=== PATIENT | female | born 1965 | race Caucasian/White ===

== ENCOUNTER 2021-02-26 23:11 | Inpatient (IN) | payer OTHER, SELFPAY ==
--- NOTE | ~2021-02-26 | XR_ITS ---
EXAMINATION: XR chest 2V 02/26/2021 23:43 INDICATION: Sternal chest pain PROCEDURE: 2 view chest COMPARISON: No prior studies for comparison. FINDINGS: The lungs are clear. The cardiomediastinal silhouette is within normal limits. There are no pleural effusions. There is no pneumothorax suspected. IMPRESSION: 1: NO ACUTE CARDIOPULMONARY DISEASE. Reviewed, dictated and finalized at location A.
--- NOTE | 2021-02-26 23:13 | ECG_ITS ---
Measurements Intervals [place] Rate: 74 P: 17 ND: 160 QRS: 27 QRSD: 96 T: 29 QT: 355 QTc: 396 Interpretive Statements SINUS RHYTHM SUBTLE ST ELEVATION IN LATERAL LEADS- CONSIDER ACUTE INJURY ST DEPRESSION IN SEPTAL LEADS- CONSIDER ACUTE POSTERIOR INFARCT BASELINE ARTIFACT- I, II, III, AVR, AVL, AVF, V1, V4, V6 ABNORMAL ECG Electronically Signed On 02-27-2021 7:25:32 CDT by Timmy White D.O.
[2021-02-26 23:16] VITALS: BP 113/90; PULSE 83; RESP 34; TEMP 36.4; O2SAT 98
[2021-02-26] MEDS: ASPIRIN 81 MG CHEWABLE TABLET 324 MG PO (23:27)
--- NOTE | 2021-02-26 23:32 | ED.CHESTPAIN ---
HPI - Chest Pain General Chief Complaint: Chest Pain Stated Complaint: chest pain Time Seen by Provider: 02/26/21 23:29 Source: patient Mode of arrival: ambulatory Limitations: no limitations History of Present Illness HPI narrative: Patient is a 55-year-old female complaining of chest pain, midsternal, 9 out of 10, tightness, nonradiating started approximately 15 to 20 minutes prior to arrival. Patient denies any shortness of breath, abdominal pain, nausea, vomiting, diaphoresis, fever or chills. Related Data Allergies Allergy/AdvReac Type Severity Reaction Status Date / Time No Known Allergies Allergy Verified 02/26/21 23:12 Review of Systems Review of Systems: All systems reviewed & are unremarkable except as noted in HPI and below Constitutional: Constitutional: Denies body ache(s), Denies chills, Denies excessive sweating, Denies fatigue, Denies fever(s), Denies headache(s), Denies lethargy, Denies malaise, Denies weakness and Denies weight loss Eyes: Eyes: Denies blurry vision, Denies change in vision and Denies loss of vision ENT: Denies dizziness, Denies ear discharge, Denies headache(s), Denies lip swelling, Denies epistaxis, Denies nasal congestion, Denies neck pain, Denies throat swelling and Denies tongue swelling Cardiovascular: Cardiovascular: Denies diaphoresis, Denies rapid heart rate, Denies edema, Denies irregular heart rhythm, Denies lightheadedness, Denies palpitations, Denies dyspnea and Denies dyspnea on exertion Respiratory: Respiratory: Denies chest congestion, Denies cough, Denies hemoptysis, Denies dyspnea and Denies dyspnea on exertion Gastrointestinal: Gastrointestinal: Denies abdominal pain, Denies melena, Denies hematochezia, Denies diarrhea, Denies nausea, Denies vomiting and Denies hematemesis Musculoskeletal: Musculoskeletal: Denies abnormal gait, Denies deformity, Denies joint swelling, Denies limited range of motion, Denies neck pain and Denies numbness Neurologic: Denies Abnormal speech present, Denies abnormal gait, Denies confusion, Denies dizziness, Denies headache(s), Denies focal weakness, Denies loss of vision, Denies numbness, Denies Other visual disturbances, Denies Sensory deficit (Neuro) and Denies weakness Psychiatric: Psychiatric: Denies confusion, Denies depression, Denies auditory hallucinations, Denies homicidal ideation and Denies suicidal ideation Endocrine: Endocrine: Denies cold intolerance, Denies excessive sweating, Denies fatigue, Denies heat intolerance and Denies palpitations Hematologic/Lymphatic: Hematologic/Lymphatic: Denies easy bleeding and Denies easy bruising Allergic/Immunologic: Allergic/Immunologic: Denies lip swelling, Denies throat swelling and Denies tongue swelling PMFSH Family History Family History Mother Cerebrovascular accident Family history of heart disease in male family member before age 55 Father Family history of heart disease in male family member before age 55 Other Hypertension Social History Social History Smoking status: Never smoker Alcohol intake: current Comments Past medical history: Coronary artery disease, hypertension, hyperlipidemia Family history: Coronary disease Social history: Non-smoker, occasional EtOH use, no drug use Exam Const: General: cooperative, healthy appearing, comfortable, no acute distress, well developed, alert and awake; No confusion Orientation/consciousness: oriented to person, oriented to place, oriented to time, patient oriented x3 and No confusion Limitations: no limitations HENMT: Head: normal to inspection, normocephalic and atraumatic Ears: hearing grossly normal bilaterally, TM normal on the right and TM normal on the left General nose exam: Normal external nose present, Normal nares present and No nasal discharge present Face and sinus: normal facial exam Mouth: Yes Normal oral and pal
[2021-02-26 23:34] LABS: Basophils Absolute Auto 0.1 K/mm3 (0.0-0.1); Basophils Percent Auto 0.6 % (0.2-1.2); Eosinophils Absolute Auto 0.2 K/mm3 (0-0.3); Eosinophils Percent Auto 2.2 % (0-4.4); Hematocrit 43.1 % (37.0-47.0); Hemoglobin 14.5 g/dL (12.0-15.0); Immature Granulocyte Absolute 0.02 K/mm3 (0.00-0.031); Immature Granulocyte Percent A 0.2 % (0-0.5); Lymphocytes Absolute Auto 3.33 K/mm3 (0.9-3.2); Lymphocytes Percent Auto 37.2 % (18.3-44.2); Mean Corpuscular HGB Conc 33.6 g/dl (32-36); Mean Corpuscular Hemoglobin 30.2 pg (26-34); Mean Corpuscular Volume 89.8 fl (80-100); Monocytes Absolute Auto 0.7 K/mm3 (0.1-0.6); Monocytes Percent Auto 7.9 % (2.6-8.5); Neutrophils Absolute Auto 4.6 K/mm3 (1.3-6.7); Neutrophils Percent Auto 51.9 % (45.5-73.1); Platelet Count Result 398 k/mm3 (150-375); Red Cell Distribution Width 12.1 % (11.5-14.5)
[2021-02-26 23:44] LABS: Anion Gap 11 mmol/L (8-16); Blood Urea Nitrogen 18 mg/dL (7-17); Calcium 10.1 mg/dL (8.4-10.2); Carbon Dioxide 31 mmol/L (22-30); Chloride 95 mmol/L (98-107); Estimated CRCL calculation 56 ml/min; Estimated Glomerular Filt Rate > 60; Glucose 139 mg/dL (65-105); Potassium 3.2 mmol/L (3.4-5.0); Sodium 137 mmol/L (137-145)
[2021-02-26 23:51] VITALS: BP 138/86; PULSE 69; RESP 26; O2SAT 100
[2021-02-26] MEDS: NITROGLYCERIN SL 0.4 MG TABLET SUBLINGUAL (23:53)
[2021-02-26 23:56] VITALS: O2SAT 100
[2021-02-26 23:58] VITALS: BP 84/60
[2021-02-27] VITALS (34 sets, daily range): BP systolic 100–134; BP diastolic 54–90; PULSE 64–86; RESP 16–27; TEMP 36.6–36.9; O2SAT 92–100; BMI 29.6
[2021-02-27] MEDS: SODIUM CHLORIDE 0.9% IV 1,000 ML 999 ML
--- NOTE | 2021-02-27 | PC.NURSE ---
One dose of 0.4mg SL nitroglycerin given. Pts pressure 84/60 after first dose. EDP made aware, fluid bolus initiated.
[2021-02-27 00:07] LABS: INR 0.9; Partial Thromboplastin Time 24.1 SECONDS (22.3-36.8); Prothrombin Time 12.5 Seconds (11.1-14.7)
[2021-02-27] MEDS: HEPARIN SODIUM 5,000 UNITS/ML VIAL 3000 UNITS IV PUSH (00:25)
[2021-02-27] MEDS: NITROGLYCERIN/D5W 200 MCG/ML 50 MG/250 ML BTL IV CONT ×2 (00:30→08:37)
[2021-02-27] MEDS: HEPARIN SOD/D5W 100 UNITS/ML 25,000 UNITS/250 ML BAG 6 UNITS IV CONT (00:51)
--- NOTE | 2021-02-27 00:57 | ECG_ITS ---
Measurements Intervals [place] Rate: 71 P: 25 IN: 178 QRS: 18 QRSD: 95 T: 200 QT: 439 QTc: 480 Interpretive Statements SINUS RHYTHM ST-T WAVE ABNORMALITY IN ANTEROLAT/HIGH LAT LEADS- CONSIDER ISCHEMIA ABNORMAL ECG Electronically Signed On 02-27-2021 7:22:58 CDT by Timmy White D.O.
[2021-02-27] MEDS: POTASSIUM CHLORIDE 20 MEQ PACKET (FOR LIQUID) 40 MEQ PO (01:22)
[2021-02-27 02:33] LABS: Magnesium 1.9 mg/dL (1.6-2.3)
--- NOTE | 2021-02-27 03:15 | PM.IMHP ---
H&P: HPI History of Present Illness Date/Time: 02/27/21 03:15 Chief Complaint: Chest pain Narrative: 55-year-old female with past medical history of hypertension and family history of premature coronary artery disease who presented to the ER with chest pain that started 30 minutes prior to arrival. 9 to 10/10 in intensity. Patient reports that she was lying in bed when she suddenly developed severe central chest pressure. After pressure had been ongoing for several minutes it then radiated to her left shoulder and upper neck. She did have a brief episode of cold chills with the pain. Her pain did also radiate through to her back. She reported her pain got minimally better when she sat up but seemed to get worse when she tried to get up and move around. She subsequently had her drive her to the ER. In the ER she received 324 mg of aspirin and sublingual nitroglycerin. After sublingual nitroglycerin her blood pressures dropped 40s. She received 1 L normal saline bolus with normalization of her blood pressures. She was started on a heparin drip and nitro drip per cardiology recommendations. She has noticed over the last several days that she had had some increased dyspnea on exertion compared to baseline. She reports that before COVID she used to do yoga and exercise every day but since start of the pandemic she has not been taking care of herself. Review of Systems Review of Systems: Narrative: 12 systems were reviewed with pertinent positives and negatives per HPI. Except as documented in the HPI, all other systems were reviewed and are negative. [facility] Past Medical History Medical History (Updated 02/27/21 @ 04:07 by Idalmis Marino DO) Essential hypertension Mixed hyperlipidemia Surgical History Surgical History (Updated 02/27/21 @ 04:01 by Idalmis Marino DO) History of sinus surgery Family History Family History Mother Cerebrovascular accident Hypertension Acute myocardial infarction Early 50s Heart disease Father Lung cancer Heart disease Sibling Hypertension Social History Social History (Updated 02/27/21 @ 04:15 by Idalmis Marino DO) Social History: She lives in [facility] with her of 35 years. 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 She is a lifelong nonsmoker. She only occasionally drinks a glass a wine. She denies illicit substance use. She has a poodle at home. Primary care physician: Dr. Cole Esteban Code status: Full code Surrogate decision maker: Ji () Smoking status: Never smoker Second hand tobacco smoke exposure: No Alcohol intake: current Drinks per week: 1 Substance use: never Gender identity (if verbalized by the patient): Female Sexual Orientation (if Verbalized by the Patient): Straight or Heterosexual Spiritual care concerns: No Meds Home Medications and Allergies Home Medications Medication Instructions Recorded Confirmed Type metoprolol succinate 50 mg 50 mg PO DAILY #90 tablet 06/02/20 06/02/20 Rx tablet,extended release 24 hr triamterene 75 1 tablet PO DAILY #90 tablet 06/02/20 06/02/20 Rx mg-hydrochlorothiazide 50 mg tablet Allergies Allergy/AdvReac Type Severity Reaction Status Date / Time No Known Allergies Allergy Verified 02/26/21 23:12 Vital Signs Vital Signs - 24 hr 02/26/21 23:16 02/26/21 23:51 02/26/21 23:56 Temperature 97.6 F Pulse Rate 83 69 Respiratory Rate 34 H 26 H Blood Pressure 113/90 138/86 Pulse Oximetry 98 100 100 02/26/21 23:58 02/27/21 00:18 02/27/21 00:30 Temperature Pulse Rate 75 83 Respiratory Rate 23 H Blood Pressure 84/60 L 115/90 116/81 Pulse Oximetry 100 02/27/21 01:38 02/27/21 03:02 Temperature Pulse Rate 76 73 Respiratory Rate 20 16 Blood Pressure 111/81 105/69 Pulse Oximetry 99 Exam Narrative: Exam Narrat
[2021-02-27 07:43] LABS: Partial Thromboplastin Time 30.5 SECONDS (22.3-36.8)
[2021-02-27] MEDS: HEPARIN SODIUM 5,000 UNITS/ML VIAL 4000 UNITS IV PUSH (08:06)
[2021-02-27] MEDS: METOPROLOL SUCCINATE EXT REL 50 MG TABCR PO (08:11)
[2021-02-27 08:27] LABS: Anion Gap 7 mmol/L (8-16); Blood Urea Nitrogen 13 mg/dL (7-17); Calcium 9.3 mg/dL (8.4-10.2); Carbon Dioxide 29 mmol/L (22-30); Chloride 105 mmol/L (98-107); Estimated CRCL calculation 66 ml/min; Estimated Glomerular Filt Rate > 60; Glucose 116 mg/dL (65-105); Potassium 3.8 mmol/L (3.4-5.0); Sodium 141 mmol/L (137-145)
--- NOTE | 2021-02-27 09:42 | PM.CNCAR ---
Assessment and Plan Additional Plan 55-year-old lady with history of hypertension and dyslipidemia presenting with accelerating ischemic chest pain and acute coronary syndrome/ non ST elevation RI by ECG and troponin criteria. She was rendered pain-free in the emergency room and is stable this morning in the ICU. I would recommend of course proceeding with coronary angiography today to delineate her anatomy and guide therapeutic Recommendations. Guille Pearson MD [facility] History of Present Illness History of Present Illness Consult date/time: 02/27/21 09:43 Consult reason: chest pain Reason For Visit: nstemi Narrative: This is a 55-year-old lady am seeing this morning at the request of the hospitalist because of evidence of acute coronary syndrome / non ST elevation RI. She is not known to have coronary disease prior to this event. She states she has been having episodes of intermittent chest pain for may be several weeks to as long as a month or so. Some of these episodes occur with exertion and some do not. She has noticed that consistently with exertion she is more significantly short of breath than she has been in the past. She had a severe episode of chest discomfort at rest last night at about 10:00 p.m.. She came to the emergency room where where she was evaluated. On arrival her ECG showed significant precordial ST segment depression and some subtle inferior lateral ST elevation. He was treated with aspirin nitrates, heparin and rapidly became pain free. Her troponin level was elevated on admission she was admitted to the ICU where she is being seen this morning she appears to be comfortable and offers no other history. She does have a history of hypertension and mild dyslipidemia. Review of Systems Constitutional: Constitutional: Reports no additional constitutional complaints Eyes: Eyes: Reports no additional eye complaints ENT: Reports system reviewed and no additional complaints, except as documented Cardiovascular: Cardiovascular: Reports as per HPI Respiratory: Respiratory: Reports no additional respiratory complaints Gastrointestinal: Gastrointestinal: Reports no additional gastrointestinal complaints Musculoskeletal: Musculoskeletal: Reports no additional musculoskeletal complaints Integumentary/Breasts: Skin/Breast: Reports system reviewed and no additional complaints, except as docu Neurologic: Reports system reviewed and no additional complaints, except as documented Endocrine: Endocrine: Reports no additional endocrine complaints Hematologic/Lymphatic: Hematologic/Lymphatic: Reports no additional hematologic/lymphatic complaints Allergic/Immunologic: Allergic/Immunologic: Reports no additional allergic/immunologic complaints [facility] Past Medical History Medical History (Updated 02/27/21 @ 04:07 by Idalmis Marino DO) Essential hypertension Mixed hyperlipidemia Surgical History Surgical History (Updated 02/27/21 @ 04:01 by Idalmis Marino DO) History of sinus surgery Family History Family History Mother Cerebrovascular accident Hypertension Acute myocardial infarction Early 50s Heart disease Father Lung cancer Heart disease Sibling Hypertension Social History Social History (Updated 02/27/21 @ 04:15 by Idalmis Marino DO) Social History: She lives in [facility] with her of 35 years. 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 She is a lifelong nonsmoker. She only occasionally drinks a glass a wine. She denies illicit substance use. She has a poodle at home. Primary care physician: Dr. Cole Esteban Code status: Full code Surrogate decision maker: Ji () Smoking status: Never smoker Second hand tobacco smoke exposure: No Alcohol intake: current Drinks per week: 1 Substance use: never Gender identity (if verbalized by the pat
--- NOTE | 2021-02-27 10:46 | WPDCNINT ---
Assessment and Plan Assessment and plan (1) Acute non-ST elevation myocardial infarction (NSTEMI): Code(s): I21.4 - Non-ST elevation (NSTEMI) myocardial infarction Status: Acute Assessment and Plan: Patient presented with chest pain, acute coronary syndrome/NSTEMI by EKG and troponin criteria -appreciate Cardiology evaluation recommendation, she will be going for coronary angiogram today -continue aspirin, heparin infusion, metoprolol, nitroglycerin infusion - (2) Essential hypertension: Code(s): I10 - Essential (primary) hypertension Status: Acute Assessment and Plan: Currently on metoprolol, blood pressures have been stable -patient also on nitroglycerin infusion (3) Hyperlipidemia: Code(s): E78.5 - Hyperlipidemia, unspecified Status: Acute (4) Hypokalemia: Code(s): E87.6 - Hypokalemia Status: Acute Assessment and Plan: Resolved after supplementation Additional Plan Discussed with patient updated with her condition and plan of care. She is aware that she will be going for cardiac catheterization today. Code status: Full code Critical care time spent: 43 minutes This dictation may have been done utilizing a voice recognition system. Attempts have been made to correct errors. However, there may be uncorrected grammatical, spelling, and recognition errors present. Due to a high probability of clinically significant, life threatening deterioration, the patient required my highest level of preparedness to intervene emergently and I personally spent this critical care time directly and personally managing the patient. This critical care time included obtaining a history; examining the patient; pulse oximetry; ordering and review of studies; arranging urgent treatment with development of a management plan; evaluation of patient's response to treatment; frequent reassessment; and discussions with other providers. It was exclusive of separately billable procedures and treating other patients and teaching time. Please see Assessment and Plan section and the rest of the note for further information on patient assessment and treatment Cath Lab Technologist Consult Note Consult date: 02/27/21 Time Seen: 07:04 Reason for consult: chest pain, NSTEMI HPI: Yoselin Dinero is a 55 year old female with PMH of HTN and hyperlipidemia presented to the ED from home, with complaints of substernal chest pain 30 min prior to arrival in the ED. She stated chest pain was pressure-like, radiating to the left shoulder and upper neck. She did complain of shortness of breath, nausea. She did state that she had some chest discomfort and got winded for may be several weeks. EKG showed ST segment depression and subtle inferior lateral ST changes. Patient was started on aspirin, nitrates, heparin drip with improvement in her chest pain. Her troponin levels have gradually increased. Patient was transferred to the ICU for further management Patient seen and examined the ICU this morning, complains of chest discomfort 4/10 intensity, remains on nitroglycerin infusion. Denies any shortness of breath, nausea, vomiting. Hemodynamically stable, adequate urine output, afebrile Review of Systems Review of Systems: All systems reviewed & are unremarkable except as noted in HPI and below PMFSH Past Medical History Medical History (Updated 02/27/21 @ 11:16 by Ayala Villanueva MD) Essential hypertension Mixed hyperlipidemia Surgical History Surgical History (Updated 02/27/21 @ 04:01 by Idalmis Marino DO) History of sinus surgery Family History Family History Mother Cerebrovascular accident Hypertension Acute myocardial infarction Early 50s Heart disease Father Lung cancer Heart disease Sibling Hypertension Social History Social History (Updated 02/27/21 @ 04:15 by Idalmis Marino DO) Social History: She
--- NOTE | 2021-02-27 11:55 | WPDMODSED ---
Moderate Sedation Note-Pt Data Patient Data Diagnosis: non ST-elevation SC Present Complaint: chest pain Procedure to be performed/Plan: left heart catheterization possible PCI Allergies Allergy/AdvReac Type Severity Reaction Status Date / Time No Known Allergies Allergy Verified 02/26/21 23:12 Home Medications Medication Instructions Recorded Confirmed Type metoprolol succinate 50 mg 50 mg PO DAILY #90 tablet 06/02/20 02/27/21 Rx tablet,extended release 24 hr triamterene 75 1 tablet PO DAILY #90 tablet 06/02/20 02/27/21 Rx mg-hydrochlorothiazide 50 mg tablet Current Medications: Active Medications Heparin Sodium (Porcine) (Heparin Sodium 5,000 Units/Ml Vial) 4,000 units IV PUSH PRN PRN PRN Reason: aPTT less than 55 seconds Last Admin: 02/27/21 08:06 Dose: 4,000 units Documented by: Heparin Sodium (Porcine) (Heparin Sodium 5,000 Units/Ml Vial) 2,000 units IV PUSH PRN PRN PRN Reason: aPTT 55 - 70 seconds Heparin Sodium/Dextrose (Heparin Sodium/D5w 100 Units/Ml) 25,000 units in 250 mls @ 8 mls/hr IV CONT .Q24H PRANAV; Protocol Last Titration: 02/27/21 07:48 Dose: 800 units/hr, 8 mls/hr Documented by: Nitroglycerin/Dextrose (Nitroglycerin In 5% Dextrose 50 Mg) 50 mg in 250 mls @ 3 mls/hr IV CONT .Q24H PRANAV; Protocol Last Titration: 02/27/21 09:46 Dose: 10 mcg/min, 3 mls/hr Documented by: Metoprolol Succinate (Metoprolol Succinate Ext Rel 50 Mg Tabcr) 50 mg PO DAILY [facility] Last Admin: 02/27/21 08:11 Dose: 50 mg Documented by: Sedation/Anesthesia: No previous sedation/anesthesia problems (including family history). [facility] Past Medical History Medical History (Updated 02/27/21 @ 11:16 by Ayala Villanueva MD) Essential hypertension Mixed hyperlipidemia Surgical History Surgical History (Updated 02/27/21 @ 04:01 by Idalmis Marino DO) History of sinus surgery Family History Family History Mother Cerebrovascular accident Hypertension Acute myocardial infarction Early 50s Heart disease Father Lung cancer Heart disease Sibling Hypertension Social History Social History (Updated 02/27/21 @ 04:15 by Idalmis Marino DO) Social History: She lives in [facility] with her of 35 years. 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 She is a lifelong nonsmoker. She only occasionally drinks a glass a wine. She denies illicit substance use. She has a poodle at home. Primary care physician: Dr. Cole Esteban Code status: Full code Surrogate decision maker: Ji () Smoking status: Never smoker Second hand tobacco smoke exposure: No Alcohol intake: current Drinks per week: 1 Substance use: never Gender identity (if verbalized by the patient): Female Sexual Orientation (if Verbalized by the Patient): Straight or Heterosexual Spiritual care concerns: No Mod Sed Physical Exam Physical Exam Pre Procedural Exam: Normal: Appearance, Neck, Throat, Airway, Lungs, Heart Size, Heart Rate ( S4 is noted no murmur), Heart Rhythm, Neuro Exam and Extremities Hours since solid foods: 12 Hours since liquid intake: 12 Internal Medicine - PN: Obj Da Vital Signs Vital Signs: Vital Signs - 24 hr 02/26/21 23:16 02/26/21 23:51 02/26/21 23:56 Temperature 36.4 C Pulse Rate 83 69 Respiratory Rate 34 H 26 H Blood Pressure 113/90 138/86 Pulse Oximetry 98 100 100 02/26/21 23:58 02/27/21 00:18 02/27/21 00:30 Temperature Pulse Rate 75 83 Respiratory Rate 23 H Blood Pressure 84/60 L 115/90 116/81 Pulse Oximetry 100 02/27/21 01:38 02/27/21 03:02 02/27/21 04:00 Temperature 36.8 C Pulse Rate 76 73 69 Respiratory Rate 20 16 16 Blood Pressure 111/81 105/69 124/86 Pulse Oximetry 99 98 02/27/21 06:00 02/27/21 08:00 02/27/21 08:11 Temperature 36.9 C Pulse Rate 86 73 75 Respiratory Rate 18 22 H Blood Pressure 134/81 12
--- NOTE | 2021-02-27 12:52 | WPDCARDPROC ---
Cardiac Cath Procedure Note Date of procedure:: 02/27/21 Performing physician:: Guille Pearson MD Indication:: non ST-elevation NM Brief clinical history:: this is a 55-year-old woman with hypertension and no prior cardiac history. She has been experiencing exertional dyspnea with some chest pain for 1-2 months. The symptoms were not felt to be significant. The patient then began to have more significant chest pain last evening at about 10:00 p.m. at home at rest. She came to the emergency room in the middle of the night and was found have significant precordial ST segment depression and she was given aspirin, heparin, nitroglycerin and beta-blockers in the ER and became pain free. Troponin levels have risen moderately and in this setting and angiogram has been recommended. Procedure Procedure performed:: Left ventriculography coronary angiography Angio-Seal to right femoral artery Sedation/Medication given:: fentanyl 50 mg Versed 2 mg case start time 1229 case end time 1246 sedation provided Brenden Jeff RN, trained observer Access site:: right femoral artery Estimated blood loss:: 15-20 cc Procedure note:: patient was brought to the cardiac catheterization lab in the postabsorptive state the right femoral triangle was prepared and draped in the usual fashion. Anesthesia was provided with 1% lidocaine infiltrated locally. Using the modified Seldinger technique a 6 Monegasque sheath was placed into the femoral artery after this left heart catheterization was carried out. I used a 5 Monegasque angled pigtail catheter to measure left-sided hemodynamics and LV g in the ESTEBAN projection. After this pigtail catheter was withdrawn. I then in gauge the left coronary artery using a standard 5 Monegasque FL4 catheter in multiple projections. After this the right coronary was engaged and injected using a 5 Monegasque JR4 catheter. Cineangiograms were then reviewed and the case was terminated. An angiogram was done of the femoral artery through the sheath and then an Angio-Seal device was deployed with a good hemostatic result. Patient was taken back to the ICU room 7. 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 Findings:: Hemodynamics: Central aortic pressure is 114 over 60 left ventricle 114 over 3 end-diastolic pressure of 22 there is no gradient pullback across the aortic valve. Left ventricle: The LV is normal in size the posterior inferior segment is hypodynamic there are no akinetic segments the global ejection fraction is visually estimated to be 45-50%. The left main coronary artery is widely patent the left anterior descending is a moderate caliber artery significantly calcified proximally. There multiple high-grade lesions in the LAD with 90-95% mid stenosis and 80% stenosis distal to that. The major diagonal branch also has 90-95% stenosis. The circumflex is a moderate caliber artery giving rise to a large marginal branch and a posterior branch. The circumflex has a 99% discrete stenosis proximally. It is also significantly calcified vessel. The right coronary artery is moderate in caliber and is also significantly calcified. There is stenosis of about 60% in the proximal portion of the RCA then there is 60-70% stenosis in the 2nd portion which appears to have a hazy angiographic appearance to it. There is then a moderate stenosis of 50-60% in the 3rd portion of the RCA prior to the bifurcation. The RPDA and RPL branches appear to be free of significant disease. Conclusion:: 1. Right coronary dominant circulation with severe three-vessel coronary artery disease as detailed above. 2. Posterior inferior hypokinesia mildly overall depressed LV Function. 3. Multivessel coronary disease all vessels are heavily calcified surgical revascularization will be recommended Guille Pearson MD [facility]
--- NOTE | 2021-02-27 12:53 | PC.NURSE ---
Cardiopulmonary Rehab Services flyer was given to patient in her cardiac admission folder.
[2021-02-27] MEDS: SODIUM CHLORIDE 0.9% IV 1,000 ML 125 ML IV CONT (13:51)
--- NOTE | 2021-02-27 14:11 | PM.TDS ---
Transfer Discharge Sum: Prov Provider Date of admission: 02/27/21 01:54 Primary care physician: Cole Esteban MD Admitting clinician: Idalmis Marino DO Consults: 02/27/21 Consult to Physician Routine Comment: Consulting Provider: Ayala Villanueva Reason for consultation: ICU MANAGEMENT Has provider been notified: Yes 02/27/21 01:55 Consult to Physician Routine Comment: Consulting Provider: Guille Pearson Reason for consultation: NSTEMI Has provider been notified: Yes DS: Admitting Diagnosis Admitting Diagnosis Admitting Diagnosis: Chest pain DS: Discharge Diagnosis Discharge Diagnosis (1) Acute non-ST elevation myocardial infarction (NSTEMI): Code(s): I21.4 - Non-ST elevation (NSTEMI) myocardial infarction Status: Acute Assessment and Plan: Patient's chest pain has improved and is only minimal in nature currently. Will continue nitro drip and heparin drip per cardiology recommendations. Patient received full-dose aspirin in the ER. Patient will be monitored in the ICU. Troponin is continuing to climb but again symptoms have improved. Will continue monitor serial troponins and repeat EKG with next set of troponins. (2) Essential hypertension: Code(s): I10 - Essential (primary) hypertension Status: Acute Assessment and Plan: Blood pressures are well controlled in fact they were slightly low after sublingual nitroglycerin. Blood pressures are now stable on low-dose nitroglycerin drip. Transfer Discharge Sum: Med Medications Active and Home Medications: Home Medications metoprolol succinate 50 mg tablet,extended release 24 hr 50 mg PO DAILY #90 tablet 06/02/20 [Rx Confirmed 02/27/21] triamterene 75 mg-hydrochlorothiazide 50 mg tablet 1 tablet PO DAILY #90 tablet 06/02/20 [Rx Confirmed 02/27/21] Active Medications Heparin Sodium (Porcine) (Heparin Sodium 5,000 Units/Ml Vial) 4,000 units IV PUSH PRN PRN PRN Reason: aPTT less than 55 seconds Last Admin: 02/27/21 08:06 Dose: 4,000 units Documented by: Heparin Sodium (Porcine) (Heparin Sodium 5,000 Units/Ml Vial) 2,000 units IV PUSH PRN PRN PRN Reason: aPTT 55 - 70 seconds Heparin Sodium/Dextrose (Heparin Sodium/D5w 100 Units/Ml) 25,000 units in 250 mls @ 8 mls/hr IV CONT .Q24H PRANAV; Protocol Last Titration: 02/27/21 13:45 Dose: 800 units/hr, 8 mls/hr Documented by: Nitroglycerin/Dextrose (Nitroglycerin In 5% Dextrose 50 Mg) 50 mg in 250 mls @ 4.5 mls/hr IV CONT .Q24H PRANAV; Protocol Last Titration: 02/27/21 13:51 Dose: 15 mcg/min, 4.5 mls/hr Documented by: Sodium Chloride (Normal Saline Iv) 1,000 mls @ 125 mls/hr IV CONT .Q8H ONE Stop: 02/27/21 20:48 Last Admin: 02/27/21 13:51 Dose: 125 mls/hr Documented by: Metoprolol Succinate (Metoprolol Succinate Ext Rel 50 Mg Tabcr) 50 mg PO DAILY [facility] Last Admin: 02/27/21 08:11 Dose: 50 mg Documented by: Transfer Discharge Sum: Hosp Hospital Course Hospital course: Yoselin Dinero is a 55 year old female 55-year-old female with past medical history of hypertension and family history of premature coronary artery disease who presented to the ER with chest pain that started 30 minutes prior to arrival. 9 to 10/10 in intensity. Patient reports that she was lying in bed when she suddenly developed severe central chest pressure. After pressure had been ongoing for several minutes it then radiated to her left shoulder and upper neck. She did have a brief episode of cold chills with the pain. Her pain did also radiate through to her back. She reported her pain got minimally better when she sat up but seemed to get worse when she tried to get up and move around. She subsequently had her drive her to the ER. In the ER she received 324 mg of aspirin and sublingual nitroglycerin. After sublingual nitroglycerin her blood pressures dropped 40s. She received 1 L normal saline bolus with normalization of her blood pressures.
[2021-02-27 21:05] LABS: Partial Thromboplastin Time 39.1 SECONDS (22.3-36.8)
== END 2021-02-27 20:47 | disposition short-term general hospital (02) | DRG 282 ==
LOC: ANHED 02-27 01:10 → ANHICU 02-27 09:18
PROVIDERS: Internal Medicine; Specialist; Admitting Provider Internal Medicine; Emergency Provider Emergency Medicine; PCP Family Medicine; Visit Provider Family Medicine
PROC: 4A023N7 Measurement of Cardiac Sampling and Pressure, Left Heart, Percutaneous Approach (ICD-10-PCS; CPT 93452; principal; 2021-02-27 10:00)
PROC: 4A023N7 Measurement of Cardiac Sampling and Pressure, Left Heart, Percutaneous Approach (ICD-10-PCS; 2021-02-27 10:00)
DX: I21.4 Non-ST elevation (NSTEMI) myocardial infarction (principal); I25.10 Atherosclerotic heart disease of native coronary artery without angina pectoris; I25.84 Coronary atherosclerosis due to calcified coronary lesion; I10 Essential (primary) hypertension; E78.2 Mixed hyperlipidemia; E87.6 Hypokalemia; Z79.899 Other long term (current) drug therapy; Z82.49 Family history of ischemic heart disease and other diseases of the circulatory system
CPT/HCPCS: 36415; 71046; 80048; 83735; 84484; 85025; 85610; 85730; 93005; 93458; 96361; 96365; 96375; 99285; A9270; C1760; C1887; C1894; G0269; J0583; J1644; J2250; J3010; J7030

== ENCOUNTER 2021-07-22 16:30 | Outpatient (RCR) | payer OTHER, SELFPAY ==
[2021-05-01 09:08] VITALS: PULSE 69
--- NOTE | 2021-05-20 14:18 | PCCPR ---
[facility] Cardiology [facility] Yoselin of [facility] Cardiology office called and requested up to date VS on Yoselin to review her progress. 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 [address] Pearson's office.
== END 2021-07-22 19:30 | disposition home or self-care (01) ==
LOC: ANHCPREHAB 16:30
PROVIDERS: PCP Family Medicine; Visit Provider Specialist
DX: Z95.1 Presence of aortocoronary bypass graft (principal); I25.2 Old myocardial infarction
CPT/HCPCS: 93798

== ENCOUNTER 2022-11-14 09:38 | Emergency (ER) | payer OTHER, SELFPAY ==
--- NOTE | ~2022-11-14 | XR_ITS ---
XR chest 2V DATE: 11/14/2022 10:10 INDICATION: Cough for 2.5 weeks TECHNIQUE: 2 views COMPARISON: 02/26/2021 PA and lateral chest FINDINGS: Status post sternotomy and probable coronary bypass graft surgery. Borderline heart size. A ortic calcification and mild unfolding. No pulmonary infiltrate or consolidation, pleural effusion or pulmonary vascular congestion or pneumo thorax is detected. IMPRESSION: Status post sternotomy and probable coronary bypass graft surgery since 02/26/2021 Borderline heart size No active pulmonary disease Reviewed, dictated and finalized at location A. ASSISTANT IMPRESSION: Status post sternotomy and probable coronary bypass graft surgery s estela 02/26/2021 Borderline heart size No active pulmonary disease
[2022-11-14 09:48] VITALS: BP 155/79; PULSE 73; RESP 18; TEMP 36.2; O2SAT 100
[2022-11-14 09:49] VITALS: BP 155/79; PULSE 73; RESP 18; TEMP 36.2; O2SAT 100
--- NOTE | 2022-11-14 09:56 | ED.URI ---
HPI - URI/Sore Throat General Chief Complaint: Upper Respiratory Infection Stated Complaint: Congestion,Cough,Fatigue,Sore Throat Time Seen by Provider: 11/14/22 09:56 Source: patient Mode of arrival: ambulatory Limitations: no limitations History of Present Illness HPI Narrative: 57-year-old female presents with complaint of nasal congestion, sinus pressure, postnasal drainage for the past 2 and half weeks. She states this week drainage shortness to go into her chest and she has been coughing for the past 5-6 days. Worse voice. Some shortness of breath with exertion and when having a coughing fit. Afebrile. Taking Mucinex as directed on packaging. All systems reviewed and negative except as noted above. Related Data Home Medications Medication Instructions Recorded Confirmed atorvastatin 80 mg tablet 80 mg PO HS 05/01/21 11/14/22 ezetimibe 10 mg tablet 10 mg PO DAILY 11/14/22 11/14/22 Allergies Allergy/AdvReac Type Severity Reaction Status Date / Time No Known Allergies Allergy Verified 11/14/22 09:48 Review of Systems Review of Systems: CONSTITUTIONAL: Denies fever, chills, or sweats. reports fatigue. EYES: Denies visual changes, redness, or discharge. ENT: Reports rhinorrhea, congestion, sore throat. Denies otalgia. CARDIOVASCULAR: Denies chest pain, palpitations, or edema. RESPIRATORY: Reports cough and dyspnea exertion. GASTROINTESTINAL: Denies abdominal pain, nausea, vomiting, or diarrhea. GENITOURINARY: Denies dysuria or hematuria. SKIN: Denies rash or itching. MUSCULOSKELETAL: Denies back pain, joint pain, or myalgia. NEUROLOGIC: Denies headache, numbness, or weakness. PSYCHIATRIC: Denies anxiety or depression. All other systems reviewed are negative, except as documented in HPI. [facility] Past Medical History Medical History BMI 28.0-28.9,adult Essential hypertension Mixed hyperlipidemia Surgical History Surgical History History of quadruple bypass History of sinus surgery Family History Family History Mother Acute myocardial infarction Early 50s Heart disease Hypertension Hypercholesteremia Father Heart disease Lung cancer Hypertension Sibling Hypertension Hypercholesteremia Sibling Hypercholesteremia Diabetes mellitus Grandparent Cerebrovascular accident Social History Social History Social History: She lives in [facility] with her of 35 years. 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 She is a lifelong nonsmoker. She only occasionally drinks a glass a wine. She denies illicit substance use. She has a poodle at home. Primary care physician: Dr. Cole Esteban Code status: Full code Surrogate decision maker: Ji () Smoking status: Never smoker Second hand tobacco smoke exposure: No Alcohol intake: current Drinks per week: 1 Substance use: never Gender identity (if verbalized by the patient): Female Sexual Orientation (if Verbalized by the Patient): Straight or Heterosexual Spiritual care concerns: No Comments At time of signature, agree with nursing past medical, surgical, social and family history. There is no relevant family history pertinent to the presenting complaint. Exam Narrative: GENERAL: This is a well-nourished, well-developed patient . Patient is ill-appearing but in no distress. HEAD: normocephalic, atraumatic. EYES: PERRL. Sclera clear/white. Vision is grossly intact. EARS: External ears normal, auditory canals clear and without drainage, Fluid bilateral TMs. No erythema or perforation. NOSE: External nose normal with Nasal drainage, erythema and swelling to both nares, bilateral maxillary sinus tenderness. THROAT: Mucous membra
[2022-11-14] MEDS: IPRATROPIUM BR 0.02% INH SOLN 0.5 MG/2.5 ML VIAL INHALATION (10:12)
[2022-11-14] MEDS: ALBUTEROL SULFATE NEB 2.5 MG/3 ML INH INHALATION (10:13)
== END 2022-11-14 10:43 | disposition home or self-care (01) ==
PROVIDERS: Emergency Provider Nurse Practitioner Family; PCP Family Medicine
DX: J01.90 Acute sinusitis, unspecified (principal); B96.89 Other specified bacterial agents as the cause of diseases classified elsewhere; J20.9 Acute bronchitis, unspecified; I10 Essential (primary) hypertension; E78.2 Mixed hyperlipidemia
CPT/HCPCS: 71046; 94640; 99213; G0463